=== PATIENT | female | born 1965 | race Caucasian/White ===

== ENCOUNTER 2018-01-06 01:55 | Outpatient (CLI) | payer OTHER, SELFPAY ==
--- NOTE | 2018-01-06 09:24 | DI.MAMMO_ITS ---
SYMPTOMS/DIAGNOSIS: SCREENING, Z12.31 MAMMOGRAM: Mammograms were interpreted according to the usual protocol including computer analysis with CAD system, tomosynthesis and C view imaging. Comparison is made with exams from 2013 through 2016. The breasts are composed of scattered fibroglandular densities, breast density Category B. No suspicious masses or suspicious microcalcifications are seen. There has been no significant change. IMPRESSION: Category I B, negative mammogram. Routine screening is recommended. [facility] ASSESSMENT OF FINDINGS: Negative. Category 1. Patient will receive a letter notifying them of these results. BI-RADS category B. There are scattered areas of fibroglandular density.
== END 2018-01-06 02:15 ==
PROVIDERS: PCP Family Medicine; Visit Provider Nurse Practitioner Women's Health
DX: Z13.21 Encounter for screening for nutritional disorder (principal)
CPT/HCPCS: 77063; 77067

== ENCOUNTER 2018-02-23 15:51 | Outpatient (CLI) | payer OTHER, SELFPAY ==
--- NOTE | 2018-02-23 16:24 | DI.RAD_ITS ---
SYMPTOMS/DIAGNOSIS: DYSPNEA ON EXERTION, R06.09 PA AND LATERAL CHEST: The heart is normal in size. The lungs are clear. The mediastinal structures and pleura appear intact. CONCLUSION: Normal chest.
[2018-02-23 16:41] LABS: Absolute Basophil Count 0.03 k/cumm (0.0-0.2); Absolute Lymphocyte Count 1.91 k/cumm (1.2-3.4); Absolute Monocyte Count 0.39 k/cumm (0.11-0.7); Absolute Neutrophil Count 2.38 k/cumm (1.2-6.7); Basophils % 0.6; Eosinophils % 2.1; HCT 41.4 % (36.0-46.0); Lymphocytes % 39.7; Mean Corp. HGB Concentration 33.8 g/dL (32.0-36.0); Mean Corpuscular Hemoglobin 31.7 pg (27.0-33.0); Mean Corpuscular Volume 93.9 fL (80-95); Mean Platelet Volume 10.9 fL (8.0-11.0); Monocytes % 8.1; Neutrophils % 49.5; Platelet Count 192 x1000/uL (130-400); RBC 4.41 m/cumm (4.00-5.20); RBC Distribution Width 12.5 % (11.7-14.6); White Blood Cell Count 4.81 k/cumm (4.4-10.8)
[2018-02-23 17:48] LABS: D-Dimer 186 ng/mlFEU (<500)
== END 2018-02-23 16:11 ==
LOC: NCHCO 16:10 → DI 02-24 09:39
PROVIDERS: PCP Family Medicine; Visit Provider Family Medicine
DX: R06.09 Other forms of dyspnea (principal)
CPT/HCPCS: 36415; 71046; 85025; 85379

== ENCOUNTER 2020-02-06 14:29 | Emergency (ER) | payer OTHER, SELFPAY ==
--- NOTE | 2020-02-06 14:32 | ED.GENADUL_ITS ---
Discharge Plan Disposition Patient Disposition: HOME Condition: Stable Discharge Details Clinical Impression: Laceration of nose Primary Care Provider: Rajwinder Cheng ED Provider: Eduard Palomino Home Meds and New Rx's Prescriptions: No Action No Known Home Meds RF: 0 Discharge Instructions Instructions: Facial Laceration (ED) Additional Instructions: Keep the area clean and dry. Change antibiotic dressing daily. Please watch for new or worsening symptoms and return to the ER for any concerns. Cool compresses every 2 hours for 20 minutes. [id number] Tylenol and/or Motrin as directed for discomfort. Sutures should be removed in 5 days. Discharge Data Discharge Date/Time-TO BE ENTERED AT DEPARTURE: 02/06/20 16:40 Medical Decision Making 54-year-old female presents after a plate fell causing a nasal laceration. No LOC. Patient appears well, nontoxic and is neurologically intact. Will update tetanus status, obtain x-ray and repair the laceration. Given the initial oo zing bleeding from the laceration, LET applied X-ray read by radiology as negative. Laceration repaired without difficulty. We did discuss the possibility of retained foreign body. Patient tolerated the procedure well and has no additional questions or concerns. Comfortable discharge at this time Medical Records Medical records reviewed: Yes I reviewed the patient's medical records. HPI General Mode of arrival: ambulatory . Date/Time Provider Initiated Documentation: 02/06/20 14:30 . Limitations to Documentation: no limitations . Information obtained by: patient . HPI Narrative: This is a 54-year-old female who denies any significant past medical history. She reports that just prior to arrival she was moving furniture and a plate fell off of the shelving unit approximately 2 feet and struck her in the nose. She has localized nose pain, a 3 out of 10, a mild global headache, but denies any other injury. Denies LOC, visual changes, neck pain, nausea, vomiting, numbness, tingling, weakness. Unsure of her tetanus status. Related Data Home Medications Medication Instructions Recorded Confirmed Unknown [No Known Home Meds] 02/06/20 02/06/20 Allergies Allergy/AdvReac Type Severity Reaction Status Date / Time cephalexin monohydrate Allergy Intermediate blisters Unverified 02/06/20 14:33 [From Keflex] on uvula Review of Systems Constitutional Constitutional: Reports headache(s) and Denies weakness Eyes Eyes: Denies change in vision ENT Ears, Nose, Mouth, and Throat: Reports headache(s), Reports nasal trauma and Reports nose pain Gastrointestinal Gastrointestinal: Denies nausea and Denies vomiting Musculoskeletal Musculoskeletal: Denies numbness and Denies tingling Neurologic Neurologic: Reports headache(s), Denies numbness, Denies tingling and Denies weakness PFSH Surgical History Abdominal hysterectomy Social History Smoking/Tobacco Use Status: Never Alcohol Intake: current Alcohol Intake frequency: a few times a month Drug use: Never Substance use type: does not use Exam Const General: cooperative, healthy appearing, comfortable and no acute distress Orientation: alert, awake and oriented x3 HENMT Head: normal to inspection, normocephalic and atraumatic Ears: external ears normal, TM's normal bilaterally and EAC's normal General nose exam: nares normal, nasal mucous membranes and turbinates normal and septum normal Face images: 1. 2.5 cm laceration, minimal oozing bleeding. There does appear to be a foreign body sliver of porcelain. Mild localized discomfort. Neuro, vascular intact. Mouth: oral mucosae normal, lip normal, tongue normal and moist mucous membranes Teeth and gingiva: dentition normal Eyes General: appearance normal, both eyes and all related structures Alignment and Position: alignment normal Periorbital: periorbital findings normal Eyelids: eyelids normal Conjunctivae: conjunctivae normal Sclera: sclerae normal Cornea: corneas normal Pupils: PERRL EOM: EOM intact bilaterally Direct ophthalmoscopy: normal light reflex Neck Neck: normal visual inspection, full ROM, trachea midline, supple and nontender Resp Effort & Inspection: normal respiratory effort and able to speak in complete sentences Cardio Rate: regular rate Rhythm: regular rhythm Skin General skin exam: no rashes or lesions noted Neuro General: patient alert, patient awake, patient oriented x3, moves all extremities and no focal motor deficits Cranial Nerves: CN's II-XI intact bilaterally Cognition: normal cognition Speech: speech normal Gait: normal gait Motor: muscle tone normal throughout Sensory Exam: no sensory deficits noted Psych Appearance: grossly normal Mental Status: mental status grossly normal Procedures Laceration Laceration 1: Site: face Size (cm): 2.5 Description: linear Depth: simple, single layer Local Anesthetic: Lidocaine 1% and other anesthetic (topical LET) Amount of anesthesia used (mL): 3 Pre-repair: wound explored, irrigated extensively (Removed for shards of porcelain with forceps) and deep structures intact Skin layer closed with: nylon Size (cm): 6-0 Number of sutures: 5 Technique: simple, interrupted
[2020-02-06 14:33] VITALS: BP 147/66; PULSE 69; RESP 20; TEMP 36.8; O2SAT 99
[2020-02-06] MEDS: Lidocaine/Epinephri/Tetracaine Topical Gel 3 ML (14:57)
[2020-02-06] MEDS: Lidocaine/Epinephri/Tetracaine Topical Gel 3 ML TP (14:57)
--- NOTE | 2020-02-06 15:17 | DI.RAD_ITS ---
EXAM: XR NASAL BONES CLINICAL HISTORY: plate fell and struck nose, laceration TECHNIQUE: COMPARISON: No exams were available for comparison FINDINGS: Three views were obtained. No nasal bone fracture seen. Visualized paranasal sinuses are well aerat ed. IMPRESSION: RADIATION DOSE DELIVERED: Total DLP
== END 2020-02-06 16:40 | disposition home or self-care (01) ==
PROVIDERS: Emergency Provider Physician Assistant; PCP Family Medicine
DX: S01.21XA Laceration without foreign body of nose, initial encounter (principal); W20.8XXA Other cause of strike by thrown, projected or falling object, initial encounter; R51.9 Headache, unspecified
CPT/HCPCS: 12011; 90471; 70160

== ENCOUNTER 2020-11-11 09:47 | Emergency (ER) | payer OTHER, SELFPAY ==
--- NOTE | 2020-11-11 09:49 | ED.GENADUL_ITS ---
Discharge Plan Disposition Patient Disposition: HOME Condition: Stable Discharge Details Clinical Impression: Foot pain, right Primary Care Provider: Rajwinder Cheng ED Provider: Eduard Palomino Home Meds and New Rx's Prescriptions: Continued doxycycline hyclate 100 mg capsule 100 mg PO BID Qty: 20 RF: 0 Discharge Instructions Additional Instructions: Tick panel drawn and pending. Continue taking your 10-day course of doxycycline. No overt signs of trauma on examination or signs of cellulitis. Of breath, elevate, cool and/or warm compresses every 2 hours for twins. Wear s hort walking shoe and use crutches as needed, advance activity as tolerated. [id number] Tylenol and/or Motrin as directed for discomfort. Please watch for new or worsening symptoms and return to the ER for any concerns. Lastly, I do recommend contacting your primary care provider for your ongoing symptoms and discuss outpatient follow-up Medical Decision Making 55-year-old female status post tick bite in mid October, evaluated, plan for tick panel in 6 weeks, initiated doxycycline therapy on November 05. Reports ongoing pain at site of tick bite with intermittent swelling erythema. She is changing her gait which causes more pain in her right hip, acute on chronic. Clinically she appears well, nontoxic. She is afebrile, no other arthralgias. She is concerned about cellulitis but currently again she is afebrile, there is no erythema, warmth, or clinical signs of cellulitis. Patient is currently taking doxycycline. Discussed options, will obtain tickborne panel today. I do not believe that other laboratory values will be of any benefit, given there is no trauma, x-ray likely of little benefit as well. Discussed treating her foot pain as musculoskeletal pain in nature, will provide short walking boot, crutches, xobg-tuq-ojfshli medication such as Tylenol and/or Motrin, resting, elevating, cool and/or warm compresses. Patient is comfortable with this plan and has no additional questions or concerns. Encouraged to return to the ER for new or worsening symptoms, otherwise will follow up with her primary care provider. This documentation was generated using [employer] system, please disregard any oddities of phrase or misspellings. Medical Records Medical records reviewed: Yes I reviewed the patient's medical records. Lab Data Labs: Tick panel pending HPI General Mode of arrival: ambulatory . Date/Time Provider Initiated Documentation: 11/11/20 09:48 . Limitations to Documentation: no limitations . Information obtained by: patient . HPI Narrative: 55-year-old female, denies significant past medical history, presents to the ER for ongoing right foot pain and concern of cellulitis. Patient states that she was bit by a tick roberto reardon 3 weeks ago, subsequently seen at the urgent care at the end of October, prescribed doxycycline and plan to obtain tick panel 6 weeks from time of bite. Patient states that she continues to have pain at the site of the tick bite, this is changed her gait which in turn has made her chronic right hip pain worse than usual. She denies any fever, other joint pain, or new skin rash. Patient did not initially begin the doxycycline but began taking a 10-day course on November 05. Patient reports localized intermittent redness at the site of the tick bite between third and fourth right toes as well as swelling. She states yesterday was the first time that she elevated her foot. Has occasionally taking niap-ifw-vzznrsl medication for symptomatic control but states that she does not like taking medications if she can avoid it. States that the discomfort in her foot makes it difficult to wear her typical shoes and in turn she cannot safely do her job. Related Data Home Medications Medication Instructions Recorded Confirmed doxycycline hyclate 100 mg capsule 100 mg PO BID #20 cap 10/28/20 11/11/20 Previous Rx's Medication Instructions Recorded doxycycline hyclate 100 mg capsule 100 mg PO BID #20 cap 10/28/20 Allergies Allergy/AdvReac Type Severity Reaction Status Date / Time cephalexin monohydrate Allergy Intermediate blisters Verified 10/28/20 09:56 [From Keflex] on uvula General REVA: 4 Review of Systems Constitutional Constitutional: Denies fever(s) and Denies weakness Musculoskeletal Musculoskeletal: Denies deformity, Reports arthralgias, Reports joint swelling, Denies numbness, Reports stiffness and Denies tingling Integumentary/Breasts Skin/Breast: Reports erythema (Intermittent, not present now) Neurologic Neurologic: Denies numbness, Denies tingling and Denies weakness [facility] Surgical History Abdominal hysterectomy Social History Smoking/Tobacco Use Status: Never Smoking risk assessment performed?: Yes Alcohol Intake: current Alcohol Intake frequency: a few times a month Drug use: Never Substance use type: does not use Do you feel safe at home: Yes Do you feel safe in your relationship?: Yes Exam Const General: cooperative, healthy appearing, comfortable and no acute distress Orientation: alert and awake [facility] Head: normal to inspection, normocephalic and atraumatic Eyes General: appearance normal, both eyes and all related structures Conjunctivae: conjunctivae normal Neck Neck: normal visual inspection, full ROM, trachea midline and supple Resp Effort & Inspection: normal respiratory effort and able to speak in complete sentences Cardio Rate: regular rate Rhythm: regular rhythm Skin General skin exam: no rashes or lesions noted Neuro General: patient alert, patient awake, moves all extremities and no focal motor deficits Cognition: normal cognition Speech: speech normal Gait: antalgic Motor: muscle tone normal throughout Sensory Exam: no sensory deficits noted Extrem General: full ROM, capillary refill normal, no pedal edema and no calf tenderness Other: Right hip full range of motion, visual inspection unremarkable. There is diffuse mild lateral discomfort. Thigh, knee, calf, unremarkable. Ankle unremarkable. I am able to visualize what appears to be a healing lesion between the third and fourth digits. I do not appreciate any warmth, erythema. There is minimal localized discomfort to palpation and swelling to the fourth toe. Normal dorsalis pedal pulse and capillary refill. Full range of motion. Neuro, vascular, tendon intact. Psych Appearance: grossly normal Mental Status: mental status grossly normal
[2020-11-11 10:12] VITALS: BP 152/96; PULSE 60; TEMP 36.8; O2SAT 99
[2020-11-11 11:37] VITALS: BP 133/84; PULSE 54; RESP 20; TEMP 36.5; O2SAT 98
[2020-11-11 11:54] VITALS: BP 133/84; PULSE 54; RESP 20; TEMP 36.5; O2SAT 98
[2020-11-12 10:19] LABS: Lyme Ab w Rflx to Lyme Confirm Negative (Negative)
[2020-11-13 14:58] LABS: Anaplasma phagocytophilum Negative (Negative); B. miyamotoi PCR Negative (Negative); Babesia divergens/MO-1 Negative (Negative); Babesia duncani Negative (Negative); Babesia microti Negative (Negative); Ehrlichia chaffeensis Negative (Negative); Ehrlichia ewingii/canis Negative (Negative); Ehrlichia muris eauclairensis Negative (Negative)
== END 2020-11-11 11:55 | disposition home or self-care (01) ==
PROVIDERS: Emergency Provider Physician Assistant; PCP Family Medicine
DX: M79.671 Pain in right foot (principal); S90.861A Insect bite (nonvenomous), right foot, initial encounter; W57.XXXA Bitten or stung by nonvenomous insect and other nonvenomous arthropods, initial encounter
CPT/HCPCS: 29515; 36415; 87798; 99283; 86618

== ENCOUNTER 2024-11-14 18:23 | Outpatient (REF) | payer OTHER, SELFPAY ==
[2024-11-14 20:40] LABS: Abs Immature Grans 0.01 10^3/uL (0.0-0.06); HCT 41.4 % (36.0-46.0); HGB 14.0 g/dL (11.2-15.7); Immature Grans % 0.2 %; MCH 31.5 pg (27.0-33.0); MCHC 33.8 % (32.0-36.0); MCV 93 fL (80-95); MPV 11.2 fL (8.0-11.0); Platelet Count 201 10^3/uL (130-400); RBC 4.44 10^6/uL (3.93-5.22); RDW 12.3 % (11.7-14.6); RDW-SD 42.5 fL; WBC 6.48 10^3/uL (4.4-10.8)
[2024-11-14 20:59] LABS: ALT 98 U/L (14-59); AST 35 U/L (15-37); Albumin 4.3 g/dL (3.4-5.0); Alkaline Phosphatase 96 U/L (46-116); Anion Gap 12.3 mmol/L (3-11); BUN 21 mg/dL (7-18); Bilirubin, Total 1.2 mg/dL (0.2-1.0); CO2 24.7 mmol/L (21.0-32.0); Calcium 9.3 mg/dL (8.5-10.1); Chloride 105 mmol/L (98-107); Estimated GFR 58.24 (mL/min/1.73m2); Glucose 89 mg/dL (74-106); Potassium 4.5 mmol/L (3.5-5.1); Sodium 142 mmol/L (136-145); Total Protein 6.7 g/dL (6.4-8.2)
== END 2024-11-14 18:24 | disposition home or self-care (01) ==
LOC: LBN 18:23
PROVIDERS: PCP Family Medicine; Visit Provider Nurse Practitioner Family
DX: T14.8XXA Other injury of unspecified body region, initial encounter (principal); L03.90 Cellulitis, unspecified
CPT/HCPCS: 80053; 85025; 87070; 87205

== ENCOUNTER 2025-01-10 15:05 | Outpatient (REF) | payer OTHER, SELFPAY ==
[2025-01-10 17:09] LABS: Iron 79 ug/dL (50-170); Total Iron Binding Capacity 269 ug/dL (250-450); Transferrin Sat 29 % (15-50)
[2025-01-10 17:28] LABS: ALT 46 U/L (14-59); AST 20 U/L (15-37); Albumin 4.0 g/dL (3.4-5.0); Alkaline Phosphatase 72 U/L (46-116); Bilirubin, Direct 0.2 mg/dL (0.0-0.2); Bilirubin, Total 1.1 mg/dL (0.2-1.0); Ferritin 213 ng/mL (8-252); Total Protein 6.3 g/dL (6.4-8.2)
[2025-01-12 11:00] LABS: Hepatitis A Antibody IgM Negative (Negative); Hepatitis C Ab w Rflx HCV PCR Negative (Negative)
== END 2025-01-10 15:06 | disposition home or self-care (01) ==
LOC: NCHCN 15:05
PROVIDERS: PCP Family Medicine; Visit Provider Family Medicine
DX: R79.89 Other specified abnormal findings of blood chemistry (principal)
CPT/HCPCS: 80076; 86704; 86709; 86803; 87340; 82728; 83540; 83550

== ENCOUNTER → 2025-04-12 11:05 | Outpatient (CLI) | payer OTHER, SELFPAY ==
--- NOTE | 2025-04-12 | DI.MRI_ITS ---
Exam(s) MR BRAIN WO EXAM: MR BRAIN WO CLINICAL HISTORY: NEW ONSET OF HEADACHES AFTER AGE 51, R51.9 TECHNIQUE: Multiplanar multisequence MRI of the brain was performed. COMPARISON: CR XR NASAL BONES from 02/06/2020 FINDINGS: VENTRICLES AND EXTRA AXIAL SPACES: Normal in size and morphology for the patient's age. MIDLINE SHIFT: None. CEREBRAL PARENCHYMA: No focus of restricted diffusion to suggest acute infarct. No space-occupying lesion identified. No evidence of atrophy. No abnormal high signal lesions in the white matter. No susceptibility artifacts. BRAINSTEM/CEREBELLUM: Normal. VISUALIZED PARANASAL SINUSES: Clear. MASTOIDS:Clear. Vasculature: Normal flow void. PITUITARY GLAND: Unremarkable. ORBITS: Unremarkable. IMPRESSION: Unremarkable MRI of the brain. DATA REPOSITORY:
== END ==
LOC: DI 11:05
PROVIDERS: PCP Family Medicine; Visit Provider Family Medicine
DX: R51.9 Headache, unspecified (principal)
CPT/HCPCS: 70551